=== PATIENT | female | born 1965 ===

== ENCOUNTER 2024-02-10 10:00 | Inpatient (IN) | payer OTHER ==
[~2024-02-10] VITALS: Ht 274.3 cm; Wt 92.1 kg
[2024-02-10 11:57] VITALS: BP 151/83
[2024-02-14] MEDS ORDERED: CEFTRIAXONE SODIUM 2,000 MG VIAL IV ONE (12:45)
[2024-02-14] MEDS ORDERED: METRONIDAZOLE/SODIUM CHLORIDE 500 MG/100 ML PIGGYBACK IV ONE (12:45)
[2024-02-14] MEDS ORDERED: SUGAMMADEX SODIUM 200 MG/2 ML VIAL IV ONE (13:30)
[2024-02-14] MEDS ORDERED: MORPHINE SULFATE 4 MG/ML VIAL IV ONE ×3 (14:00→16:00)
[2024-02-14] MEDS ORDERED: RINGERS SOLUTION,LACTATED 1,000 ML IV SCH (15:45)
[2024-02-14] MEDS ORDERED: MORPHINE SULFATE 4 MG/ML CARTRIDGE IV PRN (15:45)
[2024-02-14] MEDS ORDERED: OxyCODONE HCL 5 MG TABLET (ROXICODONE) PO PRN (15:45)
[2024-02-14] MEDS ORDERED: ONDANSETRON HCL 2 MG/ML VIAL IV PRN (15:45)
[2024-02-14] MEDS ORDERED: DEXTROSE 50 % IN WATER 0.5 G/ML DISP.SYRIN IV PRN (15:45)
[2024-02-14 17:00] LABS: HEMATOCRIT 39.2 % (36.0-45.00); HEMOGLOBIN 12.7 g/dL (12.0-15.00); MEAN CELL VOLUME 86.4 fL (80.00-100.00); MEAN CORPUSCULAR HGB CONC 32.4 g/dl (32.0-36.0); PLATELET COUNT 631 K/uL (150-450); RED BLOOD COUNT 4.54 M/uL (4.00-6.00); RED CELL DISTRIBUTION WIDTH 14.9 % (11.5-14.5)
[2024-02-14] MEDS ORDERED: HYOSCYAMINE SULFATE 0.125 MG TAB.SUBL SL SCH (17:00)
[2024-02-14] MEDS ORDERED: GABAPENTIN 300 MG CAPSULE PO SCH (17:00)
[2024-02-14] MEDS ORDERED: POLYETHYLENE GLYCOL 3350 17 GM BLIST.PACK PO SCH (17:00)
[2024-02-14 17:10] VITALS: BP 144/78; O2SAT 95
[2024-02-14] MEDS ORDERED: ENALAPRILAT DIHYDRATE 1.25 MG/ML VIAL IV PRN (17:15)
[2024-02-14 17:57] LABS: CALCIUM 9.3 mg/dL (8.5-10.1); CREATININE SERUM 0.73 mg/dL (0.55-1.02); GFR 82.47; PHOSPHOROUS 3.6 mg/dL (2.5-4.9); POTASSIUM 3.96 mEq/L (3.5-5.1)
[2024-02-14 18:22] LABS: ALBUMIN 3.8 gm/dL (3.4-5.0)
[2024-02-14] MEDS ORDERED: ACETAMINOPHEN 500 MG GEL..CAP PO SCH (20:00)
[2024-02-14] MEDS ORDERED: FAMOTIDINE/PF 20 MG/2 ML VIAL IV PUSH SCH (21:00)
[2024-02-15] VITALS: BP 106/68; O2SAT 94
[2024-02-15 06:46] LABS: HEMATOCRIT 34.3 % (36.0-45.00); HEMOGLOBIN 11.6 g/dL (12.0-15.00); MEAN CELL VOLUME 84.4 fL (80.00-100.00); MEAN CORPUSCULAR HEMOGLOBIN 28.4 pg (27.00-32.0); MEAN CORPUSCULAR HGB CONC 33.7 g/dl (32.0-36.0); RED BLOOD COUNT 4.06 M/uL (4.00-6.00); RED CELL DISTRIBUTION WIDTH 14.9 % (11.5-14.5)
[2024-02-15 06:48] LABS: PLATELET COUNT 723 K/uL (150-450)
[2024-02-15 07:09] LABS: ALBUMIN 3.5 gm/dL (3.4-5.0); CALCIUM 9.2 mg/dL (8.5-10.1); CREATININE SERUM 0.92 mg/dL (0.55-1.02); GFR 63.15; MAGNESIUM 2.2 mg/dL (1.8-2.4); PHOSPHOROUS 4.8 mg/dL (2.5-4.9); POTASSIUM 5.29 mEq/L (3.5-5.1)
[2024-02-15 07:20] VITALS: BP 68/48; O2SAT 95
[2024-02-15 08:20] VITALS: BP 92/51
[2024-02-15 09:14] VITALS: BP 115/75; O2SAT 99
[2024-02-15 12:33] LABS: HEMOGLOBIN 10.8 g/dL (12.0-15.00); MEAN CELL VOLUME 85.7 fL (80.00-100.00); MEAN CORPUSCULAR HEMOGLOBIN 28.9 pg (27.00-32.0); MEAN CORPUSCULAR HGB CONC 33.8 g/dl (32.0-36.0); PLATELET COUNT 671 K/uL (150-450); RED BLOOD COUNT 3.74 M/uL (4.00-6.00)
[2024-02-15] MEDS ORDERED: 0.9 % SODIUM CHLORIDE 1,000 ML IV STA (13:41)
[2024-02-15 16:00] VITALS: BP 126/65; O2SAT 98
[2024-02-15] MEDS ORDERED: ENOXAPARIN SODIUM 40 MG/0.4 ML SYRINGE SUBCUTANEO SCH (17:00)
[2024-02-16 00:38] VITALS: BP 133/69; O2SAT 95
[2024-02-16 08:00] VITALS: BP 105/71; O2SAT 96
[2024-02-16] MEDS ORDERED: ENOXAPARIN SODIUM 40 MG/0.4 ML SYRINGE SUBCUTANEO SCH (09:00)
[2024-02-16 09:38] LABS: HEMATOCRIT 28.7 % (36.0-45.00); HEMOGLOBIN 9.6 g/dL (12.0-15.00); MEAN CELL VOLUME 86.5 fL (80.00-100.00); MEAN CORPUSCULAR HEMOGLOBIN 28.9 pg (27.00-32.0); MEAN CORPUSCULAR HGB CONC 33.4 g/dl (32.0-36.0); PLATELET COUNT 598 K/uL (150-450); RED BLOOD COUNT 3.32 M/uL (4.00-6.00); RED CELL DISTRIBUTION WIDTH 14.6 % (11.5-14.5)
[2024-02-16 10:58] LABS: ALBUMIN 3.4 gm/dL (3.4-5.0); BILIRUBIN TOTAL 0.6 mg/dL (0.3-1.2); CALCIUM 8.8 mg/dL (8.5-10.1); CREATININE SERUM 0.68 mg/dL (0.55-1.02); GFR 89.5; GLOBULINA 3.3 G/DL (2.4-3.5); POTASSIUM 4.76 mEq/L (3.5-5.1); TOTAL PROTEIN 6.7 gm/dL (6.4-8.2)
[2024-02-16] MEDS ORDERED: SOD FERRIC GLUC COMPLX/SUCROSE 62.5 MG in 0.9 % SODIUM CHLORIDE 50 ML IV SCH (15:56)
[2024-02-16 16:35] VITALS: BP 125/79; O2SAT 100
[2024-02-16] MEDS ORDERED: LEVALBUTEROL HCL 0.63 MG/3 ML SOLUTION IH SCH (18:00)
[2024-02-17] VITALS: BP 115/71; O2SAT 98
[2024-02-17 08:40] VITALS: BP 122/77; O2SAT 98
[2024-02-17 16:00] VITALS: BP 125/78; O2SAT 97
[2024-02-18 01:00] VITALS: BP 165/77; O2SAT 97
[2024-02-18 07:58] LABS: HEMATOCRIT 23.9 % (36.0-45.00); MEAN CELL VOLUME 85.6 fL (80.00-100.00); MEAN CORPUSCULAR HGB CONC 34.5 g/dl (32.0-36.0); PLATELET COUNT 545 K/uL (150-450); RED BLOOD COUNT 2.79 M/uL (4.00-6.00); RED CELL DISTRIBUTION WIDTH 14.7 % (11.5-14.5)
[2024-02-18 08:00] VITALS: BP 148/84; O2SAT 96
[2024-02-18 08:36] LABS: HEMOGLOBIN 8.2 g/dL (12.0-15.00); MEAN CORPUSCULAR HEMOGLOBIN 29.3 pg (27.00-32.0)
[2024-02-18] MEDS ORDERED: FUROsemide 20 MG/2 ML VIAL IV SCH (10:00)
[2024-02-18 16:49] VITALS: BP 144/82; O2SAT 95
[2024-02-18 18:18] LABS: HEMATOCRIT 27.6 % (36.0-45.00); HEMOGLOBIN 9.1 g/dL (12.0-15.00); MEAN CELL VOLUME 86.4 fL (80.00-100.00); MEAN CORPUSCULAR HEMOGLOBIN 28.4 pg (27.00-32.0); MEAN CORPUSCULAR HGB CONC 32.9 g/dl (32.0-36.0); PLATELET COUNT 678 K/uL (150-450); RED BLOOD COUNT 3.19 M/uL (4.00-6.00); RED CELL DISTRIBUTION WIDTH 14.7 % (11.5-14.5)
[2024-02-18 18:58] LABS: T4 TOTAL 11.23 UG/DL (4.8-13.9); TSH 2.13 uIU/mL (0.358-3.74)
[2024-02-19 00:20] VITALS: BP 196/85; O2SAT 96
[2024-02-19 08:00] VITALS: BP 151/79; O2SAT 100
[2024-02-19] MEDS ORDERED: DIPHENHYDRAMINE HCL 50 MG/ML VIAL 1ML IV SCH (08:45)
[2024-02-19] MEDS ORDERED: METHYLPREDNISOLONE SOD SUCC 40 MG VIAL IV SCH (08:45)
[2024-02-19] MEDS ORDERED: DIATRIZOATE MEGLUMINE, SODIUM 30 ML BOTTLE PO NR (09:20)
[2024-02-19 17:00] VITALS: BP 135/85; O2SAT 95
[2024-02-19 21:27] LABS: HEMATOCRIT 34.8 % (36.0-45.00); HEMOGLOBIN 11.9 g/dL (12.0-15.00); MEAN CELL VOLUME 85.4 fL (80.00-100.00); MEAN CORPUSCULAR HEMOGLOBIN 29.2 pg (27.00-32.0); MEAN CORPUSCULAR HGB CONC 34.2 g/dl (32.0-36.0); PLATELET COUNT 672 K/uL (150-450); RED BLOOD COUNT 4.08 M/uL (4.00-6.00); RED CELL DISTRIBUTION WIDTH 15.3 % (11.5-14.5)
[2024-02-20 00:41] VITALS: BP 146/80; O2SAT 97
[2024-02-20 06:59] LABS: HEMATOCRIT 34.5 % (36.0-45.00); HEMOGLOBIN 11.6 g/dL (12.0-15.00); MEAN CELL VOLUME 85.6 fL (80.00-100.00); MEAN CORPUSCULAR HEMOGLOBIN 28.8 pg (27.00-32.0); MEAN CORPUSCULAR HGB CONC 33.6 g/dl (32.0-36.0); PLATELET COUNT 560 K/uL (150-450); RED BLOOD COUNT 4.03 M/uL (4.00-6.00); RED CELL DISTRIBUTION WIDTH 15.5 % (11.5-14.5)
[2024-02-20 07:38] LABS: CALCIUM 8.9 mg/dL (8.5-10.1); CREATININE SERUM 0.58 mg/dL (0.55-1.02); GFR 107.54; MAGNESIUM 2.2 mg/dL (1.8-2.4); PHOSPHOROUS 3.7 mg/dL (2.5-4.9); POTASSIUM 4.1 mEq/L (3.5-5.1)
[2024-02-20 08:00] VITALS: BP 153/99; O2SAT 100
[2024-02-20 08:33] LABS: PLATELET ESTIMATE INCREASED (NORMAL)
[2024-02-20] MEDS ORDERED: INTESTINEX680 M1 PO (10:27)
[2024-02-20] MEDS ORDERED: NEURONTIN300 MG PO (10:28)
== END 2024-02-20 12:12 | disposition home or self-care (01) | DRG 331 ==
LOC: O/R 02-14 06:55 → SURH 02-14 10:00 → SURG 02-14 13:50
PROVIDERS: Internal Medicine; Internal Medicine Geriatric Medicine; ADMIT Surgery; ATTEND Surgery
PROC: 07BC4ZZ Excision of Pelvis Lymphatic, Percutaneous Endoscopic Approach (ICD-10-PCS; 2024-02-14)
PROC: 0DTF4ZZ Resection of Right Large Intestine, Percutaneous Endoscopic Approach (ICD-10-PCS; principal; 2024-02-14 13:30)
PROC: 3E0F7GC Introduction of Other Therapeutic Substance into Respiratory Tract, Via Natural or Artificial Opening (ICD-10-PCS; 2024-02-16)
PROC: BW21YZZ Computerized Tomography (CT Scan) of Abdomen and Pelvis using Other Contrast (ICD-10-PCS; 2024-02-19)
PROC: 30233N1 Transfusion of Nonautologous Red Blood Cells into Peripheral Vein, Percutaneous Approach (ICD-10-PCS; 2024-02-19)
DX: C18.0 Malignant neoplasm of cecum (principal); D12.0 Benign neoplasm of cecum; R59.0 Localized enlarged lymph nodes; D64.89 Other specified anemias; I95.9 Hypotension, unspecified; R42 Dizziness and giddiness; R53.83 Other fatigue; D75.838 Other thrombocytosis